=== PATIENT | female | born 1990 | race Caucasian/White ===

== ENCOUNTER → 2018-06-30 | Outpatient (CLI) | payer OTHER ==
--- NOTE | 2018-06-30 11:30 | CT ---
EXAM DESCRIPTION: Abdoment/Pelvis w/o Contrast CLINICAL HISTORY: 28 years Female, RIGHT LOWER QUADRANT TENDERNESS COMPARISON: AP supine abdomen dated 30 June 2018 TECHNIQUE: Transaxial images were obtained without intravenous or oral contrast media. Sagittal and coronal reconstruction was performed.This exam was performed according to our departmental dose-optimization program, which includes automated exposure control, adjustment of the mA and/or kV according to patient size and/or use of iterative reconstruction technique. FINDINGS: The lung bases are clear. The liver and spleen are normal in appearance. No biliary ductal dilatation is observed. The gallbladder is normal in appearance. No adrenal masses are detected. The pancreas is normal in appearance. Imaging of the kidneys reveals no evidence of hydronephrosis mass or cyst. Small renal calculi are observed bilaterally. There are nonobstructing. 4 calculi are identified on the right. The largest measures 3 mm in diameter. Fibroid identified on the left. The largest measures 3.3 mm in diameter. The uterus and adnexa are unremarkable. The appendix is not identified however no cecal region inflammation is detected. A small amount of right adnexal fluid is observed. Further evaluation with pelvic sonography might be considered in this individual. No inguinal region abnormality is seen. No bone abnormality is seen. IMPRESSION: 1. Nonobstructing small bilateral renal calculi are observed. 2. A small amount of free fluid is observed in the right adnexa. Further evaluation with pelvic sonography might be considered in this individual. Electronically signed by: Hunter Jj MD 06/30/2018 11:27 AM CDT
== END ==
LOC: CT 10:09
PROVIDERS: ATTEND Physician Assistant
DX: N20.0 Calculus of kidney (principal); R18.8 Other ascites; R10.816 Epigastric abdominal tenderness